=== PATIENT | female | born 1950 | race Caucasian/White ===

== ENCOUNTER → 2016-11-10 | Outpatient (CLI) | payer OTHER ==
[~2016-11-10] MED LIST: CALC-342 PO; CALC500T83 PO; CHOL1000 PO; CHOL2000 PO; IBUP-103 PO; LETR2TAB PO; LEVO125T72 PO; MACUHEALTH PO; SYN137 PO; TRAM-10 PO
[2016-11-10 12:15] LABS: BASO % 0.5 %; BASO ABS # 0.02 K/uL (0-0.2); COMPLETE YES; EOS % 7.7 %; HEMATOCRIT 38.7 % (37-47); IG% 0.3 %; LYMPH % 43.4 %; LYMPH ABS # 1.69 K/uL (1.2-3.4); MEAN CELL VOLUME 86.6 fL (80-100); MEAN CORPUSCULAR HEMOGLOBIN 30.4 pg (25-34); MEAN CORPUSCULAR HGB CONC 35.1 g/dl (32-36); MEAN PLATELET VOLUME 10.7 fL (7.4-10.4); MONO % 9.5 %; NEUT % 38.6 %; PLATELET COUNT 276 K/uL (130-400); RED BLOOD COUNT 4.47 M/uL (4.2-5.4); WHITE BLOOD COUNT 3.89 K/uL (4.8-10.8)
[2016-11-10 14:45] LABS: ALT/SGPT 29 U/L (12-78); AST/SGOT 22 U/L (15-37); BLOOD UREA NITROGEN 14 mg/dl (7-18); BUN/CREATININE RATIO 15.6 (10-20); CALCIUM 9.1 mg/dl (8.5-10.1); CARBON DIOXIDE 27 mmol/L (21-32); CHLORIDE 108 mmol/L (98-107); GLUCOSE 91 mg/dl (70-99); POTASSIUM 4.1 mmol/L (3.5-5.1); SODIUM 145 mmol/L (136-145)
[2016-11-10 14:47] LABS: ALB/GLOB RATIO 1.2 (0.9-2); ALKALINE PHOSPHATASE 64 U/L (45-117)
== END | disposition home or self-care (01) ==
LOC: C.LABPVFM 08:05
PROVIDERS: ATTEND Internal Medicine Hematology & Oncology
DX: C50.412 Malignant neoplasm of upper-outer quadrant of left female breast (principal)

== ENCOUNTER → 2017-01-05 | Outpatient (CLI) | payer OTHER ==
[2017-01-05 12:53] LABS: ALT/SGPT 28 U/L (12-78); AST/SGOT 22 U/L (15-37); BLOOD UREA NITROGEN 15 mg/dl (7-18); BUN/CREATININE RATIO 17.7 (10-20); CALCIUM 8.7 mg/dl (8.5-10.1); CARBON DIOXIDE 27 mmol/L (21-32); CHLORIDE 110 mmol/L (98-107); CREATININE 0.87 mg/dl (0.60-1.20); POTASSIUM 4.1 mmol/L (3.5-5.1); SODIUM 143 mmol/L (136-145)
[2017-01-05 13:04] LABS: ALKALINE PHOSPHATASE 62 U/L (45-117); CHOLESTEROL 190 mg/dl (0-200); HDL CHOLESTEROL 95 mg/dl; LDL CHOLESTEROL CALCULATED 81 mg/dl; THYROID STIMULATING HORMONE 0.105 uIu/ml (0.300-4.500); TRIGLYCERIDES 70 mg/dl (0-150); VERY LOW DENSITY LIPOPROT CALC 14 mg/dl
[2017-01-13 17:27] LABS: GLUCOSE 96 mg/dl (70-99)
== END | disposition home or self-care (01) ==
LOC: C.LABPVFM 08:30
PROVIDERS: ATTEND Internal Medicine
DX: E88.09 Other disorders of plasma-protein metabolism, not elsewhere classified (principal); Z13.220 Encounter for screening for lipoid disorders; E03.9 Hypothyroidism, unspecified

== ENCOUNTER → 2017-02-04 | Outpatient (CLI) | payer OTHER ==
[~2017-02-04] MED LIST changes: +CALC-485 PO; +HYDR-5688 PO; +MULTCAP7 PO
[2017-02-04 12:55] VITALS: BP 119/78; PULSE 60; TEMP 36.8; O2SAT 98
--- NOTE | 2017-02-04 14:08 | Radiation Oncology Follow-Up ---
Radiation Oncology Follow-Up Date of Visit Feb 04, 2017. Reason For Visit Annual follow-up Radiation Completion Date APBI 07/12/10 Diagnosis (1) Breast cancer Status: Resolved Onset Date: 04/19/2010 Location: left breast Histology Subtype: ductal Stage: l Permanent Comment: SP abnormal left breast mammogram SP needle localization biopsy SP lumpectomy and SLN BX Stage [id number] SP radiation therapy completed 07/12/2010 utilizing APBI received 3,850 cGy Last Edited By: Alicia Askew on Feb 07, 2015 15:57 Interim History She's been doing well over this past year. She denies any changes to her breast. She's noted no masses or tenderness and no change of the axilla. She has no swelling of her arm. She is followed in medical oncology now by Dr. Guy Kern. She completed 5 years of tamoxifen and is now on Letrozole. It is recommended that she stay on the medication for 5 years. She denies side effects to the medication. She is up-to-date on mammography. She is a small area of skin dryness and redness on her for arm that has been present for several months. She's dated this started with a scratch from her cat. The area does not completely resolved. She also has an area of itching of her right mid back. She has noticed no masses and no skin lesions in this area. Allergies Coded Allergies: Naproxen (Verified Allergy, Severe, can't breathe, rash, 12/03/16) Home Medications Scheduled Calcium (Calcium), 1 TAB PO QPM Calcium Carbonate-Vitamin D (Calcium 600+D), 2 TABS PO BID Cholecalciferol (Vitamin D3), 1 TAB PO DAILY Cholecalciferol (Vitamin D3), 1 CAP PO DAILY Letrozole (Femara), 2.5 MG PO QPM Levothyroxine Sodium (Synthroid), 1 TAB PO DAILY [[facility]], 1 TAB PO QAM Scheduled PRN Ibuprofen Tab (Advil), 400-600 MG PO Q6H PRN for Pain Tramadol (Ultram), 2 TABS PO Q6 PRN for Pain Review of Systems Gastrointestinal: Symptoms: WNL Oral: Symptoms: No Problems Respiratory: Symptoms: WNL Urinary: Symptoms: Incontinence, Frequency Comments: Some increased frequency and stress incontinence w/aging; Skin: Symptoms: No Problems Breast: Right Upper Arm Measurement: 35.5 Right Mid Arm Measurement: 30.0 Right Wrist Measurement: 18.0 Left Upper Arm Measurement: 39.0 Left Mid Arm Measurement: 31.0 Left Wrist Measurement: 18.5 Arm Dominence: Left Physical Exam Vital Signs Date Time Temp Pulse Resp B/P Pulse Ox O2 Delivery O2 Flow Rate FiO2 02/04/17 12:55 36.8 60 12 119/78 98 Fatigue: None General Appearance: no apparent distress Eyes: normal inspection, EOMI ENT: normal ENT inspection, hearing grossly normal Neck: no adenopathy, thyroid normal Respiratory/Chest: lungs clear, no respiratory distress, no accessory muscle use Breast: Breast examination reveals well-healed incisions of the left breast. There are no masses or tenderness and no axillary adenopathy. There are some fibrous changes above the incision line. There are no distinct masses. Using the [place] score cosmesis she has a good outcome. Minimal telangiectasia. No nipple changes. Right breast shows no masses or tenderness no axillary adenopathy. Cardiovascular: regular rate, rhythm, no gallop, no murmur Abdomen: non tender Neurologic/Psychiatric: no motor/sensory deficits, alert, normal mood/affect Skin: warm/dry, + pertinent finding (mild area of dry skin of the right forearm.) Laboratory Studies Test 11/10/16 08:10 01/05/17 08:40 White Blood Count 3.89 K/uL (4.8-10.8) Red Blood Count 4.47 M/uL (4.2-5.4) Hemoglobin 13.6 g/dL (12.0-16.0) Hematocrit 38.7 % (37-47) Mean Corpuscular Volume 86.6 fL (80-100) Mean Corpuscular Hemoglobin 30.4 pg (25-34) Mean Corpuscular Hemoglobin Concent 35.1 g/dl (32-36) Platelet Count 276 K/uL (130-400) Mean Platelet Volume 10.7 fL (7.4-10.4) Neutrophils (%) (Auto) 38.6 % Lymphocytes (%) (Auto) 43.4 % Monocytes (%) (Auto) 9.5 % Eosinophils (%) (Auto) 7.7 % Basophils (%) (Auto) 0.5 % Neutrophils # (Auto) 1.50 K/uL (1.4-6.5) Lymphocytes # (Auto) 1.69 K/uL (1.2-3.4) Monocytes # (Auto) 0.37 K/uL (0.11-0.59) Eosinophils # (Auto) 0.30 K/uL (0-0.5) Basophils # (Auto) 0.02 K/uL (0-0.2) RDW Standard Deviation 38.3 fL (36.4-46.3) RDW Coefficient of Variation 12.1 % (11.5-14.5) Immature Granulocyte % (Auto) 0.3 % Immature Granulocyte # (Auto) 0.01 K/uL (0.00-0.02) Sodium Level 145 mmol/L (136-145) 143 mmol/L (136-145) Potassium Level 4.1 mmol/L (3.5-5.1) 4.1 mmol/L (3.5-5.1) Chloride Level 108 mmol/L (98-107) 110 mmol/L (98-107) Carbon Dioxide Level 27 mmol/L (21-32) 27 mmol/L (21-32) Anion Gap 10.0 mmol/L (3-11) 6.0 mmol/L (3-11) Blood Urea Nitrogen 14 mg/dl (7-18) 15 mg/dl (7-18) Creatinine 0.90 mg/dl (0.60-1.20) 0.87 mg/dl (0.60-1.20) Estimated GFR () 76.1 79.3 Estimated GFR (Non- 65.7 68.5 BUN/Creatinine Ratio 15.6 (10-20) 17.7 (10-20) Random Glucose 91 mg/dl (70-99) 96 mg/dl (70-99) Calcium Level 9.1 mg/dl (8.5-10.1) 8.7 mg/dl (8.5-10.1) Total Bilirubin 0.5 mg/dl (0.2-1) 0.5 mg/dl (0.2-1) Aspartate Amino Transferase (AST) 22 U/L (15-37) 22 U/L (15-37) Alanine Aminotransferase (ALT) 29 U/L (12-78) 28 U/L (12-78) Alkaline Phosphatase 64 U/L (45-117) 62 U/L (45-117) Lactate Dehydrogenase 216 U/L (84-246) Total Protein 6.7 gm/dl (6.4-8.2) 6.7 gm/dl (6.4-8.2) Albumin 3.6 gm/dl (3.4-5.0) 3.4 gm/dl (3.4-5.0) Globulin 3.1 gm/dl (2.5-4.0) 3.3 gm/dl (2.5-4.0) Albumin/Globulin Ratio 1.2 (0.9-2) 1.0 (0.9-2) Triglycerides Level 70 mg/dl (0-150) Cholesterol Level 190 mg/dl (0-200) HDL Cholesterol 95 mg/dl LDL Cholesterol, Calculated 81 mg/dl VLDL Cholesterol, Calculated 14 mg/dl Cholesterol/HDL Ratio 2.0 Thyroid Stimulating Hormone (TSH) 0.105 uIu/ml (0.300-4.500) Additional Studies Patient: LONNY DUMAS [facility] Rec: [id number] Address1: [address] Address2: [facility] ID: [id number] Date: 1950 Sex: F Ref Phy: Tremayne Pierce M.D. Att Phy: Alicia Askew PA-C Mylene Phy: Ty Teran M.D. Inter Phy: Misa Aguirre MD [facility] Zip: [place] [address] SC: C.MAMM Report #: [id number] Bore Miner Operator: SPENCER Diagnosis: ASYMPTOMATIC, HX BREAST CA Service Date: 03/28/16 MNE: [id number] Ordering Dr: Alicia Askew PA-C CC: Alicia Askew PA-C CONF: DICTATED BY: Mias Aguirre MD MAMMOGRAPHY REPORT BILATERAL DIGITAL SCREENING MAMMOGRAM 3D/2D WITH CAD: 03/28/2016 CLINICAL HISTORY: Asymptomatic Personal History of Breast Cancer. Comparison is made to exams dated: 03/27/2015 mammogram, 03/23/2013 mammogram, mammogram, 09/20/2012 mammogram, 04/03/2011 mammogram, and 03/29/2010 mammogram - [facility]. FINDINGS: Breast tomosynthesis in addition to standard CC and MLO views were obtained. There are scattered areas of fibroglandular density in both breasts. Current study was also evaluated with a Computer Aided Detection (CAD) system. There is expected architectural distortion and associated density with surgical clips in the left upper outer middle to posterior breast, at the site of prior lumpectomy. There is skin irregularity in the area of prior surgery. Scattered benign coarse calcifications and mild vascular calcifications in the breasts. No suspicious spiculated mass, architectural distortion or cluster of suspicious microcalcifications is seen. IMPRESSION: ACR BI-RADS CATEGORY 2: BENIGN There is no mammographic evidence of malignancy. A 1 year screening mammogram is recommended. The patient will receive written notification of the results. Approximately 10% of breast cancers are not detected with mammography. A negative mammographic report should not delay biopsy if a clinically suggestive mass is present. Misa Aguirre M.D. ay/:03/29/2016 14:09:52 Protozoologist: Poncho LINTON(Jean Carlos)(Fredy), [facility] letter sent: Normal 1/2 BI-RADS Code: ACR BI-RADS Category 2: Benign Dictated by: Misa Aguirre MD Signed by: Misa Aguirre MD Assessment & Plan She has recheck mammography scheduled for March 2017. She'll continue regular follow-up with her primary care physician and Dr. Kowalski. We asked her to return to our office in 1 year. She would like to continue follow-up breast examinations at our office. The area of skin dryness on her right forearm has shown areas of dryness of asked her to use Aquaphor. If this does not resolve she needs to show this to her scientific research manager. Total Time In Follow-Up I spent 20 minutes speaking to the patient performing examination. Best 15 minutes reviewing information and completing this note.
== END | disposition home or self-care (01) ==
LOC: C.ONC 12:45
PROVIDERS: ATTEND Physician Assistant Medical
DX: Z08 Encounter for follow-up examination after completed treatment for malignant neoplasm (principal); Z92.3 Personal history of irradiation; Z85.3 Personal history of malignant neoplasm of breast

== ENCOUNTER → 2017-04-02 | Outpatient (CLI) | payer OTHER ==
[~2017-04-02] MED LIST changes: -SYN137 PO
--- NOTE | 2017-04-02 13:39 | MAMMOGRAPHY REPORT ---
BILATERAL DIGITAL SCREENING MAMMOGRAM TOMOSYNTHESIS WITH CAD: 04/02/2017 CLINICAL HISTORY: Routine screening. Patient has no complaints. Asymptomatic. Personal history of br east cancer. TECHNIQUE: Breast tomosynthesis in addition to standard 2D mammography was performed. Current study was also evaluated with a Computer Aided Detection (CAD) system. COMPARISON: Comparison is made to exams dated: 03/28/2016 mammogram, 03/27/2015 mammogram, 03/24/2014 m ammogram, 03/23/2013 mammogram, 09/20/2012 mammogram, and 04/01/2011 mammogram - [facility]. BREAST COMPOSITION: There are scattered areas of fibroglandular density in both breasts. FINDINGS: No suspicious masses, calcifications, or areas of architectural distortion are noted in ei ther breast. There has been no significant interval change compared to prior exams. Again noted are postoperative changes in the left upper outer quadrant from prior lumpectomy, including stable densit y, architectural distortion, and surgical clips at the lumpectomy bed. A few benign coarse dystrophi c calcifications are seen at the lumpectomy bed. Other scattered bilateral benign-appearing calcific ations are not significantly changed. IMPRESSION: ACR BI-RADS CATEGORY 2: BENIGN There is no mammographic evidence of malignancy. A 1 year screening mammogram is recommended. The pa tient will receive written notification of the results. Approximately 10% of breast cancers are not detected with mammography. A negative mammographic report should not delay biopsy if a clinically suggestive mass is present. Aysha Díaz M.D. ah/:04/02/2017 09:21:31 Contractor [employer]: Tamara LINTON(Jean Carlos)(Fredy)(BD), [facility] letter sent: Normal 1/2 BI-RADS Code: ACR BI-RADS Category 2: Benign
== END | disposition home or self-care (01) ==
LOC: C.MAMM 08:08
PROVIDERS: ATTEND Internal Medicine
DX: Z12.31 Encounter for screening mammogram for malignant neoplasm of breast (principal); Z85.3 Personal history of malignant neoplasm of breast

== ENCOUNTER → 2017-04-28 | Outpatient (CLI) | payer OTHER ==
[~2017-04-28] MED LIST changes: -CALC-485 PO; -HYDR-5688 PO; -MULTCAP7 PO
[2017-04-28 13:27] LABS: THYROID STIMULATING HORMONE 1.03 uIu/ml (0.300-4.500)
== END | disposition home or self-care (01) ==
LOC: C.LABPVFM 08:04
PROVIDERS: ATTEND Internal Medicine
DX: E03.9 Hypothyroidism, unspecified (principal)

== ENCOUNTER → 2017-06-11 | Outpatient (CLI) | payer OTHER ==
[~2017-06-11] MED LIST changes: -CHOL1000 PO; -CHOL2000 PO
[2017-06-11 12:10] LABS: BASO % 0.5 %; BASO ABS # 0.02 K/uL (0-0.2); COMPLETE YES; EOS % 7.9 %; HEMATOCRIT 41.5 % (37-47); IG% 0.2 %; LYMPH % 35.2 %; LYMPH ABS # 1.48 K/uL (1.2-3.4); MEAN CELL VOLUME 89.2 fL (80-100); MEAN CORPUSCULAR HEMOGLOBIN 30.1 pg (25-34); MEAN CORPUSCULAR HGB CONC 33.7 g/dl (32-36); MEAN PLATELET VOLUME 10.5 fL (7.4-10.4); MONO % 8.3 %; NEUT % 47.9 %; PLATELET COUNT 300 K/uL (130-400); RED BLOOD COUNT 4.65 M/uL (4.2-5.4)
[2017-06-11 12:30] LABS: ALT/SGPT 22 U/L (12-78); AST/SGOT 18 U/L (15-37); BLOOD UREA NITROGEN 18 mg/dl (7-18); BUN/CREATININE RATIO 20.7 (10-20); C-REACTIVE PROTEIN < 0.29 mg/dl (0-0.29); CALCIUM 9.1 mg/dl (8.5-10.1); CARBON DIOXIDE 27 mmol/L (21-32); CHLORIDE 107 mmol/L (98-107); CREATININE 0.85 mg/dl (0.60-1.20); GLUCOSE 101 mg/dl (70-99); POTASSIUM 4.1 mmol/L (3.5-5.1); SODIUM 140 mmol/L (136-145)
[2017-06-11 12:40] LABS: ALKALINE PHOSPHATASE 75 U/L (45-117); THYROID STIMULATING HORMONE 0.337 uIu/ml (0.300-4.500)
[2017-06-11 13:25] LABS: LYME DISEASE AB IGG NEG (NEG)
[2017-06-11 13:26] LABS: LYME DISEASE AB IGM NEG (NEG)
== END | disposition home or self-care (01) ==
LOC: C.LAB1850 10:11
PROVIDERS: ATTEND Internal Medicine
DX: M25.50 Pain in unspecified joint (principal)

== ENCOUNTER → 2017-06-16 | Outpatient (CLI) | payer OTHER ==
--- NOTE | 2017-06-16 17:36 | DIAGNOSTIC IMAGING REPORT ---
CERVICAL WITHOUT CONTRAST HISTORY: Cervical radiculopathy. Pain. CERVICAL RADICULOPATHY TECHNIQUE: Multiplanar multisequence MRI of the cervical spine was performed without the use of contrast. COMPARISON STUDY: None. FINDINGS: Moderate degenerative disc change throughout the entire cervical region. Mild reversal of the normal cervical curvature. No bone marrow replacing process. Signal characteristics of the cervical cord remains unremarkable. C2-C3: No significant central canal or neural foraminal narrowing. C3-C4: Mild broad-based disc bulge. No significant impact upon the cervical cord. C4-C5: Mild broad-based disc bulge. Contact with the cervical cord but no deformity or displacement of that structure. C5-C6: Mild broad-based disc bulge. Mild osteophytic narrowing of the neuroforamina bilaterally. C6-C7: Mild broad-based posterior osteophytic formation. No impact with the cervical cord. Moderate osteophytic narrowing of the neuroforamina bilaterally. C7-T1: No significant central canal or neural foraminal narrowing. IMPRESSION: 1. Moderate degenerative disc change throughout the entire cervical region. 2. Mild multilevel bulging disc components with minimal if any impact upon the cervical cord. 3. Mild multilevel narrowing of the neuroforamina bilaterally. 4. No significant compromise of the spinal canal at this time. The above report was generated using voice recognition software. It may contain grammatical, syntax or spelling errors. Electronically signed by: Yeison Vanegas M.D. 06/16/2017 5:34 PM Dictated Date/Time: 06/16/2017 5:31 PM
== END | disposition home or self-care (01) ==
PROVIDERS: ATTEND Internal Medicine
DX: M54.12 Radiculopathy, cervical region (principal)

== ENCOUNTER → 2017-07-31 | Outpatient (CLI) | payer OTHER ==
[~2017-07-31] MED LIST changes: +CALC-485 PO; +MULTCAP7 PO
[2017-07-31 12:37] LABS: BASO % 0.5 %; BASO ABS # 0.02 K/uL (0-0.2); COMPLETE YES; EOS % 6.6 %; HEMATOCRIT 39.8 % (37-47); IG% 0.3 %; LYMPH % 34.9 %; LYMPH ABS # 1.37 K/uL (1.2-3.4); MEAN CELL VOLUME 88.8 fL (80-100); MEAN CORPUSCULAR HEMOGLOBIN 31.3 pg (25-34); MEAN CORPUSCULAR HGB CONC 35.2 g/dl (32-36); MEAN PLATELET VOLUME 9.8 fL (7.4-10.4); MONO % 8.7 %; PLATELET COUNT 249 K/uL (130-400); RED BLOOD COUNT 4.48 M/uL (4.2-5.4); WHITE BLOOD COUNT 3.93 K/uL (4.8-10.8)
[2017-07-31 12:51] LABS: ALT/SGPT 21 U/L (12-78); BLOOD UREA NITROGEN 15 mg/dl (7-18); BUN/CREATININE RATIO 16.4 (10-20); CALCIUM 8.7 mg/dl (8.5-10.1); CARBON DIOXIDE 26 mmol/L (21-32); CHLORIDE 110 mmol/L (98-107); CREATININE 0.92 mg/dl (0.60-1.20); GLUCOSE 90 mg/dl (70-99); POTASSIUM 4.1 mmol/L (3.5-5.1); SODIUM 141 mmol/L (136-145)
[2017-07-31 12:53] LABS: ALB/GLOB RATIO 1.1 (0.9-2); ALKALINE PHOSPHATASE 72 U/L (45-117); AST/SGOT 19 U/L (15-37)
== END | disposition home or self-care (01) ==
LOC: C.LABPVFM 08:43
PROVIDERS: ATTEND Internal Medicine Hematology & Oncology
DX: C50.412 Malignant neoplasm of upper-outer quadrant of left female breast (principal)

== ENCOUNTER → 2017-08-27 | Day surgery (SDC) | payer OTHER ==
[2017-08-04 13:14] LABS: BASO % 0.8 %; BASO ABS # 0.04 K/uL (0-0.2); COMPLETE YES; EOS % 5.8 %; HEMATOCRIT 39.5 % (37-47); LYMPH % 32.5 %; LYMPH ABS # 1.58 K/uL (1.2-3.4); MEAN CELL VOLUME 88.2 fL (80-100); MEAN CORPUSCULAR HEMOGLOBIN 30.6 pg (25-34); MEAN CORPUSCULAR HGB CONC 34.7 g/dl (32-36); MEAN PLATELET VOLUME 9.8 fL (7.4-10.4); NEUT % 53.9 %; PLATELET COUNT 242 K/uL (130-400); RED BLOOD COUNT 4.48 M/uL (4.2-5.4); WHITE BLOOD COUNT 4.86 K/uL (4.8-10.8)
[2017-08-04 13:49] LABS: BLOOD UREA NITROGEN 19 mg/dl (7-18); BUN/CREATININE RATIO 20.6 (10-20); CARBON DIOXIDE 27 mmol/L (21-32); CHLORIDE 107 mmol/L (98-107); CREATININE 0.91 mg/dl (0.60-1.20); GLUCOSE 90 mg/dl (70-99); POTASSIUM 3.8 mmol/L (3.5-5.1); SODIUM 139 mmol/L (136-145)
[2017-08-07 08:20] VITALS: Ht 151.1 cm; Wt 89.5 kg
[~2017-08-27] VITALS: Ht 151.1 cm; Wt 89.5 kg
[~2017-08-27] MED LIST changes: +ATROPINE SULFATE 0.1 MG/ML 5ML SYR IV PRN; +ATROPINE SULFATE 0.4 MG/ML 1 ML VIAL ONE; -CALC-342 PO; -CALC500T83 PO; +CEFAZOLIN 2000MG IV PUSH 10 ML IV SCH; +EpHEDrine SULFATE INJ 50 MG/ML AMP IV PRN; +FENTANYL CITRATE INJ 50 MCG/1 ML 2 ML VIAL IV PRN; +FENTANYL CITRATE INJ 50 MCG/1 ML 2 ML VIAL ONE; +HYDR-5688 PO; +HYDROCODONE/ACETAMOPHEN 5/325MG TAB PO PRN; +LACTATED RINGER'S 1000ML 1,000 ML IV SCH; +LIDOCAINE HCL 2% 2 ML VIAL (20MG/ML) ONE; +LIDOCAINE HCL 2% LOCAL 20 ML VIAL ONE; -MACUHEALTH PO; +MIDAZOLAM HCL 1 MG/ML 2ML VIAL ONE; +ONDANSETRON INJ 2 MG/ML 2 ML VIAL IV PRN; +PROPOFOL IV EMULSION 10 MG/ML 20 ML VIAL IV ONE; +SODIUM CHLORIDE 0.9% 1000ML 1,000 ML IV SCH
--- NOTE | 2017-08-27 07:00 | History & Physical Bridge - SC ---
H&P Re-Evaluation Bridge Note: I have examined the patient, reviewed the History & Physical and in the interval since the performance of the History & Physical I have noted the following changes of clinical significance: No changes noted
--- NOTE | 2017-08-27 07:50 | Discharge Instructions-SurgCtr ---
Discharge Instructions Date of Service Aug 27, 2017. Visit Reason for Visit: Right Carpal Tunnel Syndrome Discharge Discharge Diagnosis / Problem: SAME ABOVE Discharge Goals Goal(s): Decrease discomfort, Improve function Activity Recommendations Activity Limitations: as noted below Lifting Limitations: until after follow-up appointment Exercise/Sports Limitations: until after follow-up appointment Driving or Machine Use: resume 1 day after discharge Anesthesia . Post Anesthesia Instructions: If you have had General Anesthesia or IV Sedation: * Do not drive today. * Resume driving when surgeon permits. * Do not make important decisions or sign legal documents today. * Call surgeon for: 1. Temperature elevations greater than 101 degrees F. 2. Uncontrollable pain. 3. Excessive bleeding. 4. Persistent nausea and vomiting. 5. Medication intolerance (nausea, vomiting or rash). * For nausea and vomiting use only clear liquids such as: tea, soda, bouillon until nausea subsides, then gradually increase diet as tolerated. * If you have any concerns or questions, call your surgeon's office. If physician is unavailable and it is an emergency, call 911 or go to the nearest emergency room. . Instructions / Follow-Up Instructions / Follow-Up MEDICATIONS: * Resume previous medications unless instructed otherwise by your surgeon. * Always take pain medication on a full stomach or with food to avoid upset stomach. * Do not drink alcohol or drive while taking narcotics. * Ibuprofen or Tylenol may be taken if narcotic not needed. SPECIAL CARE INSTRUCTIONS: __ None _X_ Keep extremity elevated and iced x 48 hours; apply ice 20-30 minutes 8-10 times/day. May remove at night. __ Sling __24 hrs/day __ Remove at night __ Shoulder Immobilizer __ 24 hrs/day __ Remove at night _X_ Dressing __ Maintain until seen in office, may shower with plastic over site _X_ Remove dressings in 5 DAYS. MAY SHOWER SOONER IF COVERED WITH PLASTIC BAG _X_ Cover incisions with band-aids after showering __ Do not remove steri-strips Call physician if chills or temperature rises above 102 degrees or pain unrelieved by prescribed pain medications at . . Diet Recommendations Home Diet: no limitations Fluid Restriction: None Procedures Procedures Performed: Right Carpal Tunnel Release Pending Studies Studies pending at discharge: no Work Instructions Return To Work: after follow-up Lifting Limitations: no more than 10 pounds Medical Emergencies . Who to Call and When: Medical Emergencies: If at any time you feel your situation is an emergency, please call 911 immediately. . Non-Emergent Contact Non-Emergency issues call your: Primary Care Provider Call Non-Emergent contact if: you have a fever, temperature is above 101.5 . . "Provider Documentation" section prepared by Puma Tilley. .
[2017-08-27 08:20] VITALS: BP 133/80; PULSE 93; TEMP 36.4; O2SAT 96
--- NOTE | 2017-08-27 08:20 | OPERATIVE REPORT ---
DATE OF OPERATION: 08/27/2017 PREOPERATIVE DIAGNOSIS: Carpal tunnel syndrome of the right wrist. POSTOPERATIVE DIAGNOSIS: Same. PROCEDURE: Open right carpal tunnel release. SURGEON: Dr. Michele Hand. HEALTH UNIT SUPERVISOR: Puma Tilley PA-C, whose assistance was necessary for retraction in closure. ANESTHESIA: Local with sedation. COMPLICATIONS: None. CONDITION: Stable to PACU. INDICATIONS: Kathie is a pleasant 67-year-old female who presented to my office with chronic numbness in her right hand. EMG and clinical examination were diagnostic for carpal tunnel syndrome of the right wrist. After failing conservative treatment, she elected to undergo an open carpal tunnel release. On 08/27/2017, she arrived at [facility] for the above procedure. She was seen in the preoperative holding area and the operative extremity was identified and signed. She was given a preoperative antibiotic, taken back to the operating room, laid on the table in supine position, given basic sedation. The right hand and wrist was then prepped and draped in sterile fashion. Time-out was done and the patient and operative extremity was properly identified. The surgical site was then anesthetized with 10 mL of lidocaine. A longitudinal incision was made directly over the transverse carpal ligament. Dissection was taken down through the palmar fascia and the ligament was exposed. A knife and tenotomy scissors were used to do a complete release of the transverse carpal ligament. Care was taken to ensure complete proximal and distal release. The wound was then irrigated and closed with 4-0 nylon suture in a mattress fashion. She was placed in a soft dressing and taken to the postanesthesia care unit in stable condition. She tolerated the procedure well. I attest to the content of the Intraoperative Record and any orders documented therein. Any exception s are noted below.
--- NOTE | 2017-08-27 08:23 | Anesthesiology Progress Note ---
Anesthesia Post Op Note Date & Time Aug 27, 2017 at 08:23 Vital Signs Pain Intensity: 0 Vital Signs Past 12 Hours Date Time Temp Pulse Resp B/P (MAP) Pulse Ox O2 Delivery O2 Flow Rate FiO2 08/27/17 08:20 36.4 93 16 133/80 (97) 96 Room Air 08/27/17 07:54 36.2 78 16 103/71 (82) 97 Room Air 08/27/17 06:29 36.8 76 18 131/85 (100) 97 Room Air Notes Mental Status: alert / awake / arousable, participated in evaluation Pt Amnestic to Procedure: Yes Nausea / Vomiting: adequately controlled Pain: adequately controlled Airway Patency, RR, SpO2: stable & adequate BP & HR: stable & adequate Hydration State: stable & adequate Anesthetic Complications: no major complications apparent
--- NOTE | 2017-08-27 15:37 | [facility] Post Operative Brief Note ---
Immediate Operative Summary Operative Date Aug 27, 2017. Pre-Operative Diagnosis Right Carpal Tunnel Syndrome Post-Operative Diagnosis Same Procedure(s) Performed Right Carpal Tunnel Release Surgeon Dr Hand Deposition Operator Surgeon(s) Adolfo Tilley PA-C Estimated Blood Loss 5ml Findings as above Specimens None Complication(s) None Disposition Recovery Room / PACU
== END | disposition home or self-care (01) ==
LOC: X.SURG 06:19
PROVIDERS: ATTEND Orthopaedic Surgery
DX: G56.01 Carpal tunnel syndrome, right upper limb (principal); M19.90 Unspecified osteoarthritis, unspecified site; Z85.3 Personal history of malignant neoplasm of breast; Z90.710 Acquired absence of both cervix and uterus; Z98.890 Other specified postprocedural states; Z79.899 Other long term (current) drug therapy; E66.9 Obesity, unspecified; Z68.39 Body mass index [BMI] 39.0-39.9, adult

== ENCOUNTER → 2017-12-04 | Outpatient (CLI) | payer OTHER ==
[~2017-12-04] MED LIST changes: -ATROPINE SULFATE 0.1 MG/ML 5ML SYR IV PRN; -ATROPINE SULFATE 0.4 MG/ML 1 ML VIAL ONE; -CEFAZOLIN 2000MG IV PUSH 10 ML IV SCH; -EpHEDrine SULFATE INJ 50 MG/ML AMP IV PRN; -FENTANYL CITRATE INJ 50 MCG/1 ML 2 ML VIAL IV PRN; -FENTANYL CITRATE INJ 50 MCG/1 ML 2 ML VIAL ONE; -HYDR-5688 PO; -HYDROCODONE/ACETAMOPHEN 5/325MG TAB PO PRN; -LACTATED RINGER'S 1000ML 1,000 ML IV SCH; -LIDOCAINE HCL 2% 2 ML VIAL (20MG/ML) ONE; -LIDOCAINE HCL 2% LOCAL 20 ML VIAL ONE; -MIDAZOLAM HCL 1 MG/ML 2ML VIAL ONE; -ONDANSETRON INJ 2 MG/ML 2 ML VIAL IV PRN; -PROPOFOL IV EMULSION 10 MG/ML 20 ML VIAL IV ONE; -SODIUM CHLORIDE 0.9% 1000ML 1,000 ML IV SCH
[2017-12-04 12:46] LABS: ALT/SGPT 22 U/L (12-78); AST/SGOT 14 U/L (15-37); BLOOD UREA NITROGEN 15 mg/dl (7-18); CALCIUM 9.3 mg/dl (8.5-10.1); CARBON DIOXIDE 26 mmol/L (21-32); CHOLESTEROL 214 mg/dl (0-200); CREATININE 0.92 mg/dl (0.60-1.20); GLUCOSE 99 mg/dl (70-99); SODIUM 139 mmol/L (136-145)
[2017-12-04 12:57] LABS: LDL CHOLESTEROL CALCULATED 115 mg/dl
== END | disposition home or self-care (01) ==
LOC: C.LABPVFM 09:04
PROVIDERS: ATTEND Internal Medicine
DX: E03.9 Hypothyroidism, unspecified (principal); M54.16 Radiculopathy, lumbar region

== ENCOUNTER → 2017-12-14 | Outpatient (CLI) | payer OTHER ==
--- NOTE | 2017-12-14 09:44 | DIAGNOSTIC IMAGING REPORT ---
MRI LUMBAR SPINE W/O CONTRAST CLINICAL HISTORY: Low back pain with bilateral leg radiculopathy. Spinal stenosis. TECHNIQUE: Sagittal and axial T1, T2 and STIR images were obtained. COMPARISON STUDY: July 2016 OBSERVATIONS: The vertebral bodies and posterior elements appear intact. There is no abnormal bony signal present to suggest a marrow replacement process. L1-2: No disc protrusions or extrusions. No evidence of spinal canal or neural foraminal compromise. L2-3: No disc protrusions or extrusions. No evidence of spinal canal or neural foraminal compromise. L3-4: There is a grade 1 spondylolisthesis of L3 on L4. There is a circumferential disc bulge. There is moderate spinal stenosis. There is facet joint arthropathy. There is bilateral foraminal narrowing. L4-5: There is a mild circumferential disc bulge. There is no significant spinal stenosis. There is mild foraminal narrowing left greater than right. L5-S1: There is a minor circumferential disc bulge. There is no significant spinal or foraminal stenosis. The conus medullaris and cauda equina appear normal. IMPRESSION: 1. Persistent grade 1 spondylolisthesis of L3 on L4. There is secondary moderate spinal stenosis. 2. Bilateral foraminal narrowing at the L3-4 level. Left greater than right foraminal narrowing at the L4-5 level. 3. The examination remains essentially unchanged from July 2016 Electronically signed by: Kyree Benoit M.D. 12/14/2017 9:43 AM Dictated Date/Time: 12/14/2017 9:38 AM
== END | disposition home or self-care (01) ==
LOC: C.MRIBC 08:53
PROVIDERS: ATTEND Anesthesiology
DX: M54.5 Low back pain (principal)

== ENCOUNTER → 2018-02-03 | Outpatient (CLI) | payer OTHER ==
[~2018-02-03] MED LIST changes: +MELO7.5T5 PO; -MULTCAP7 PO; +[UNRECOGNIZED DRUG - OTHER]
[2018-02-03 13:11] VITALS: BP 145/84; PULSE 68; TEMP 36.7; O2SAT 97
--- NOTE | 2018-02-03 14:13 | Radiation Oncology Follow-Up ---
Radiation Oncology Follow-Up Date of Visit Feb 03, 2018. Reason For Visit Annual follow-up Radiation Completion Date APBI 07/12/10 Diagnosis (1) Breast cancer Status: Resolved Onset Date: 04/19/2010 Location: Left breast Histology Subtype: Ductal Stage: l Permanent Comment: SP abnormal left breast mammogram SP needle localization biopsy SP lumpectomy and SLN BX Stage [id number] SP radiation therapy completed 07/12/2010 utilizing APBI received 3,850 cGy Last Edited By: Alicia Askew on Feb 07, 2015 15:57 Interim History She has been doing well over the past year. He has noted no changes to her breast. She has noted no masses or tenderness and no change of the axilla. She has had no swelling of her arm. She is up-to-date on mammography. She continues regular follow-up with medical oncology and has continued on letrozole. She had no complaints of side effects. She has had some orthopedic issues over this past year. She has chronic low back pain and had steroid injections to L4-L5 on March 05, 2017 and July 07, 2017. She had a carpal tunnel release August 27, 2017. She had an MRI of the cervical spine June 16 and also lumbar spine December 14, 2017. She has medications available for treatment of her arthritis pain. Current she denies pain. Allergies Coded Allergies: Naproxen (Verified Allergy, Severe, can't breathe, rash, 12/08/17) Home Medications Scheduled Calcium Carbonate-Cholecalcife (Calcium 500 +D3 500-600 mg-Unit), 2 TAB PO QPM Letrozole (Femara), 2.5 MG PO QPM Levothyroxine Sodium (Synthroid), 1 TAB PO QAM [maculiteeye vit], DAILY Scheduled PRN Ibuprofen Tab (Advil), 400-600 MG PO Q6H PRN for Pain Meloxicam (Mobic), 7.5 MG PO DAILY PRN for Pain Tramadol (Ultram), 2 TABS PO Q6 PRN for Pain Review of Systems Gastrointestinal: Symptoms: WNL Oral: Symptoms: No Problems Respiratory: Symptoms: WNL Urinary: Symptoms: WNL Comments: Some increased frequency and stress incontinence w/aging; Skin: Symptoms: No Problems Breast: Right Upper Arm Measurement: 37.0 Right Mid Arm Measurement: 30.0 Right Wrist Measurement: 18.0 Left Upper Arm Measurement: 40.0 Left Mid Arm Measurement: 31.0 Left Wrist Measurement: 19.3 Arm Dominence: Left Physical Exam Vital Signs Date Time Temp Pulse Resp B/P (MAP) Pulse Ox O2 Delivery O2 Flow Rate FiO2 02/03/18 13:11 36.7 68 12 145/84 97 Fatigue: None General Appearance: no apparent distress Eyes: normal inspection, EOMI ENT: normal ENT inspection, hearing grossly normal Neck: no adenopathy, thyroid normal Respiratory/Chest: lungs clear, no respiratory distress, no accessory muscle use Breast: Breast examination reveals well-healed incisions of the left breast. There are no masses or tenderness and no axillary adenopathy. She does have fibrous changes above and below the incision line. There are no nipple changes. Using the [place] score cosmesis she has a good outcome. The right breast showed no masses or tenderness and no axillary adenopathy. Cardiovascular: regular rate, rhythm, no gallop, no murmur Extremities: no pedal edema Neurologic/Psychiatric: no motor/sensory deficits, alert, normal mood/affect Skin: warm/dry Pain Management Patient Reports Pain: No Initial Pain Intensity: 0.0 Pain Management Plan She currently denies pain. She has medication available for discomfort. Laboratory Laboratory Results: not applicable Pathology Pathology Results: not applicable Imaging Imaging Studies: were reviewed, and pertinent findings noted below Imaging Comments BILATERAL DIGITAL SCREENING MAMMOGRAM TOMOSYNTHESIS WITH CAD: 04/02/2017 CLINICAL HISTORY: Routine screening. Patient has no complaints. Asymptomatic. Personal history of breast cancer. TECHNIQUE: Breast tomosynthesis in addition to standard 2D mammography was performed. Current study was also evaluated with a Computer Aided Detection (CAD ) system. COMPARISON: Comparison is made to exams dated: 03/28/2016 mammogram, 03/27/2015 mammogram, 03/24/2014 mammogram, 03/23/2013 mammogram, 09/20/2012 mammogram, and mammogram - [facility]. BREAST COMPOSITION: There are scattered areas of fibroglandular density in both breasts. FINDINGS: No suspicious masses, calcifications, or areas of architectural distortion are noted in either breast. There has been no significant interval change compared to prior exams. Again noted are postoperative changes in the left upper outer quadrant from prior lumpectomy, including stable density, architectural distortion, and surgical clips at the lumpectomy bed. A few benign coarse dystrophic calcifications are seen at the lumpectomy bed. Other scattered bilateral benign-appearing calcifications are not significantly changed. IMPRESSION: ACR BI-RADS CATEGORY 2: BENIGN There is no mammographic evidence of malignancy. A 1 year screening mammogram is recommended. The patient will receive written notification of the results. Approximately 10% of breast cancers are not detected with mammography. A negative mammographic report should not delay biopsy if a clinically suggestive mass is present. Aysha Díaz M.D. ah/:04/02/2017 09:21:31 [employer] Supervisor: Tamara Payne RT(Jean Carlos)(Fredy)([place]), [facility] letter sent: Normal 1/2 BI-RADS Code: ACR BI-RADS Category 2: Benign Dictated by: Aysha Díaz MD Signed by: Aysha Díaz MD Cervical and Lumbar spine MRIs were reviewed and show no metastatic disease. She has degenerative disc changes and spondylolisthesis. Assessment & Plan Plan: Continue with annual mammography. She will have a mammogram in March. Continue regular follow-up with her primary care provider and medical oncologist. She continues on the Femara. We discussed continuation of follow- up. She did want to continue with follow-up examinations at our office. She therefore was sent for a recheck visit in 1 year. We discussed the fibrous tissue noted above and below the incision line. She was instructed in gentle massage. She may call our office if she has any questions or concerns in the interim. Total Time In Follow-Up I spent 20 minutes speaking to the patient in performing examination. I spent 15 minutes reviewing information and completing this note. Copy To Lino Kowalski MD; Pro,Ty Renae M.D.
== END | disposition home or self-care (01) ==
LOC: C.ONC 12:59
PROVIDERS: ATTEND Physician Assistant Medical
DX: Z08 Encounter for follow-up examination after completed treatment for malignant neoplasm (principal); Z92.3 Personal history of irradiation; Z85.3 Personal history of malignant neoplasm of breast